=== PATIENT | male | born 1950 | race African-American/Black ===

== ENCOUNTER 2025-04-12 10:55 | Emergency (ER) | payer MEDICARE, MEDICAID ==
[~2025-04-12] VITALS: Ht 195.6 cm; Wt 120.0 kg
[2025-04-12 10:58] VITALS: O2SAT 81
[2025-04-12 11:04] VITALS: BP 176/102; PULSE 98; RESP 16; TEMP 37; O2SAT 97
== END 2025-04-12 11:32 | disposition home or self-care (01) ==
LOC: ER 10:55
DX: Z00.8 Encounter for other general examination (principal); Z96.659 Presence of unspecified artificial knee joint
CPT/HCPCS: 99282